=== PATIENT | female | born 1970 | race Two or more races ===

== ENCOUNTER 2023-09-20 04:06 | Emergency (ER) | payer MEDICAID ==
[~2023-09-20] VITALS: Ht 154.9 cm; Wt 108.0 kg
[2023-09-20 04:20] VITALS: BP 137/80; PULSE 100; RESP 20; TEMP 97.9
[2023-09-20] MEDS ORDERED: KETOROLAC TROMETH 60MG/2ML VIAL IM ONE (05:30)
[2023-09-20 05:32] VITALS: O2SAT 96
[2023-09-20] MEDS ORDERED: IBUP-1456 PO (05:33)
[2023-09-20] MEDS ORDERED: PRED20TA2 PO (05:33)
== END 2023-09-20 07:31 | disposition home or self-care (01) ==
LOC: ER 04:06
DX: G89.29 Other chronic pain (principal); M25.562 Pain in left knee; Z79.1 Long term (current) use of non-steroidal anti-inflammatories (NSAID); Z79.899 Other long term (current) drug therapy
CPT/HCPCS: 29505; 73562; 96372; 99283; J1885